=== PATIENT | male | born 1990 | race Caucasian/White ===

== ENCOUNTER 2017-06-17 09:31 | Emergency (ER) | payer OTHER ==
[~2017-06-17] VITALS: Ht 180.3 cm; Wt 114.5 kg
[~2017-06-17 09:31] MED LIST: CIPRO500 MG PO; FLAGYL500 MG PO; HYDROCODON-ACE1 EAC7 PO; NOHOMEMEDS; NORCO 5/3251 TABLET PO; ZOFRAN ODT4 MG PO
[2017-06-17] MEDS ORDERED: CLINDAMYCIN HC150 MG PO (12:20)
[2017-06-17 12:36] VITALS: BP 132/97
== END 2017-06-17 12:36 | disposition home or self-care (01) ==
LOC: EME 09:31
DX: J02.9 Acute pharyngitis, unspecified (principal); R49.0 Dysphonia; R11.0 Nausea
CPT/HCPCS: 70360; 99281; 99282